=== PATIENT | female | born 1940 | race Caucasian/White ===

== ENCOUNTER 2017-08-09 10:18 | Emergency (ER) | payer OTHER ==
[~2017-08-09] VITALS: Ht 149.9 cm; Wt 70.0 kg
[~2017-08-09 10:18] MED LIST: METF500T PO
[2017-08-09 10:30] VITALS: BP 191/86; PULSE 96; RESP 16; TEMP 98.2; O2SAT 88
--- NOTE | 2017-08-09 11:34 | PD ---
HPI Chief Complaint: Complaint Time Seen by Provider: 11:34 Travel History International Travel<30 days: No Contact w/Intl Traveler<30days: No Traveled to known affect area: No History of Present Illness HPI 76-year-old female came to the emergency room with history of pelvic pain and back pain has been going on for past 5 days. Patient says that she sees a urologist Dr. Kapadia and was in his office 5 days ago and he had checked a urine then and it was negative. But the pain started shortly after that. Currently she is in significant pain as per her. Patient's blood pressure was elevated in triage. It is unclear if she is compliant with her medications. She is not the best historian and there is an element of language barrier but a bigger element of indifference and cognition part of it as well. Patient knows that she is on medications but does not know what medication she takes. She did not bring her list. When I am asking a question I do not get a direct answer but a lot of beating around the [place]. I do not think there is any aggravating or relieving factors with the pain. PFSH Past Medical History Narrative Medical List of her past medical, surgical, social and family history is reviewed from the nursing note. Asthma: Yes Heart Rhythm Problems: Yes (C/O OCCASIONAL FAST HR ) Cardiac Catheterization: No High Cholesterol: No Congestive Heart Failure: No Diabetes: Yes Hypertension: Yes (PT DENIES) Musculoskeletal: Yes (DEGENERATIVE DISK DISEASE, CHRONIC BACK PAIN) Respiratory: Yes (CHRONIC BRONCITIS) Immunizations Current: Yes Myocardial Infarction: No ?: Not Menopausal: Yes Ovarian Cysts: Yes Past Surgical History Appendectomy: Yes Coronary Artery Bypass Graft: No Hysterectomy: Yes Social History Alcohol Use: No Tobacco Use: No Substance Use: No Allergies-Medications (Allergen,Severity, Reaction): Coded Allergies: ciprofloxacin (Unverified Allergy, Severe, RASH, 12/15/16) sulfamethoxazole (Unverified Allergy, Severe, RASH, 12/15/16) trimethoprim (Unverified Allergy, Severe, RASH, 12/15/16) propoxyphene (Unverified Allergy, Mild, 12/15/16) Comments List of her allergies reviewed from the nursing note. Reported Meds & Prescriptions Reported Meds & Active Scripts Active Reported Metformin (Metformin HCl) 500 Mg Tab 500 Mg PO DAILY With a meal Narrative Medication List of her home medications reviewed from the nursing note Review of Systems Except as stated in HPI: all other systems reviewed are Neg Genitourinary: Positive: Pelvic Pain Musculoskeletal: Positive: Pain Physical Exam Narrative GENERAL: Awake, alert, mild distress SKIN: Focused skin assessment warm/dry. HEAD: Atraumatic. Normocephalic. EYES: Pupils equal and round. No scleral icterus. No injection or drainage. ENT: No nasal bleeding or discharge. Mucous membranes pink and moist. NECK: Trachea midline. No JVD. CARDIOVASCULAR: Regular rate and rhythm. No murmur appreciated. RESPIRATORY: No accessory muscle use. Clear to auscultation. Breath sounds equal bilaterally. GASTROINTESTINAL: Abdomen soft, non-tender, nondistended. Hepatic and splenic margins not palpable. MUSCULOSKELETAL: No obvious deformities. No clubbing. No cyanosis. No edema. NEUROLOGICAL: Awake and alert. No obvious cranial nerve deficits. Motor grossly within normal limits. Normal speech. PSYCHIATRIC: Appropriate mood and affect; insight and judgment normal. Data Data Last Documented VS Orders Orders Urinalysis - C+S If Indicated (08/09/17 10:46) Complete Blood Count With Diff (08/09/17 11:49) Basic Metabolic Panel (Bmp) (08/09/17 11:49) Morphine Inj (Morphine Inj) (08/09/17 12:00) Ondansetron Inj (Zofran Inj) (08/09/17 12:00) Acetamin-Hydrocod 325-5 Mg ([place] 5-325 (08/09/17 12:00) Ed Discharge Order (08/09/17 13:10) Labs Laboratory Tests Test 08/09/17 11:45 08/09/17 12:30 Urine Color LIGHT-YELLOW Urine Turbidity CLEAR Urine pH 8.0 Urine Specific [place] 1.006 Urine Protein NEG mg/dL Urine Glucose (UA) NEG mg/dL Urine Ketones NEG mg/dL Urine Occult Blood NEG Urine Nitrite NEG Urine Bilirubin NEG Urine Urobilinogen LESS THAN 2.0 MG/DL Urine Leukocyte Esterase NEG Urine WBC 1 /hpf Urine Squamous Epithelial Cells <1 /hpf Urine Bacteria FEW /hpf Microscopic Urinalysis Comment CULT NOT INDICATED White Blood Count 8.2 TH/MM3 Red Blood Count 4.60 MIL/MM3 Hemoglobin 13.8 GM/DL Hematocrit 40.5 % Mean Corpuscular Volume 88.0 FL Mean Corpuscular Hemoglobin 30.0 PG Mean Corpuscular Hemoglobin Concent 34.1 % Red Cell Distribution Width 13.5 % Platelet Count 196 TH/MM3 Mean Platelet Volume 9.1 FL Neutrophils (%) (Auto) 66.1 % Lymphocytes (%) (Auto) 25.6 % Monocytes (%) (Auto) 6.9 % Eosinophils (%) (Auto) 0.9 % Basophils (%) (Auto) 0.5 % Neutrophils # (Auto) 5.4 TH/MM3 Lymphocytes # (Auto) 2.1 TH/MM3 Monocytes # (Auto) 0.6 TH/MM3 Eosinophils # (Auto) 0.1 TH/MM3 Basophils # (Auto) 0.0 TH/MM3 CBC Comment DIFF FINAL Differential Comment Blood Urea Nitrogen 14 MG/DL Creatinine 0.67 MG/DL Random Glucose 113 MG/DL Calcium Level 9.5 MG/DL Sodium Level 139 MEQ/L Potassium Level 4.3 MEQ/L Chloride Level 106 MEQ/L Carbon Dioxide Level 27.4 MEQ/L Anion Gap 6 MEQ/L Estimat Glomerular Filtration Rate 86 ML/MIN MDM Medical Decision Making Medical Screen Exam Complete: Yes Emergency Medical Condition: Yes Medical Record Reviewed: Yes Differential Diagnosis UTI, chronic pelvic pain, musculoskeletal Narrative Course 1:08 PM awaiting for blood test results. UA is back and is negative. She was medicated for pain Procedures EKG Prior to Arrival: No Diagnosis Primary Impression: Chronic pelvic pain in female Additional Impression: Hypertension Qualified Codes: I10 - Essential (primary) hypertension Referrals: Primary Care Physician Additional Instructions: Follow-up with your primary care. Take your blood pressure medication like he supposed to. Disposition: 01 DISCHARGE HOME Condition: Stable Musa Blackwood MD Aug 09, 2017 11:34
[2017-08-09] MEDS ORDERED: MORPHINE SULFATE 4 MG/ML INJ IV PUSH ONE (12:00)
[2017-08-09] MEDS ORDERED: ONDANSETRON HCL 4 MG/2 ML VIAL IV PUSH ONE (12:00)
[2017-08-09] MEDS ORDERED: ACETAMINOPHEN/HYDROcodone 325 MG/5 MG TAB PO ONE (12:00)
[2017-08-09 12:12] LABS: BACTERIA, URINE FEW /hpf; BILIRUBIN, URINE NEG (NEG); BLOOD, URINE NEG (NEG); GLUCOSE,URINE NEG (NEG); KETONE, URINE NEG (NEG); NITRITE,URINE NEG (NEG); SQUAMOUS EPITHELIAL CELL URINE <1 /hpf (0-5); URINE COLOR LIGHT-YELLOW (YELLW/STRAW); URINE LEUKOCYTE ESTERASE NEG (NEG)
[2017-08-09 12:47] LABS: AUTOMATED NEUTROPHIL # 5.4 TH/MM3 (1.8-7.7); BASOPHIL % 0.5 % (0.0-2.0); EOSINOPHIL # 0.1 TH/MM3 (0-0.4); EOSINOPHIL % 0.9 % (0.0-4.0); HEMATOCRIT 40.5 % (35.0-46.0); HEMOGLOBIN 13.8 GM/DL (11.6-15.3); LYMPH % 25.6 % (9.0-44.0); LYMPHOCYTE # 2.1 TH/MM3 (1.0-4.8); MEAN CORPUSCULAR HGB CONC 34.1 % (32.0-36.0); MEAN PLATELET VOLUME 9.1 FL (7.0-11.0); MONO % 6.9 % (0.0-8.0); MONOCYTE # 0.6 TH/MM3 (0-0.9); NEUT % 66.1 % (16.0-70.0); PLATELET COUNT 196 TH/MM3 (150-450); RED CELL DISTRIBUTION WIDTH 13.5 % (11.6-17.2); WHITE BLOOD COUNT 8.2 TH/MM3 (4.0-11.0)
[2017-08-09 13:08] LABS: BICARBONATE 27.4 MEQ/L (21.0-32.0); CALCIUM 9.5 MG/DL (8.5-10.1); CREATININE 0.67 MG/DL (0.50-1.00)
[2017-08-09 13:15] VITALS: BP 133/67; O2SAT 95
== END 2017-08-09 13:25 | disposition home or self-care (01) ==
LOC: NEPD 10:18
DX: R10.2 Pelvic and perineal pain (principal); G89.29 Other chronic pain; I10 Essential (primary) hypertension; E11.9 Type 2 diabetes mellitus without complications; Z79.84 Long term (current) use of oral hypoglycemic drugs
CPT/HCPCS: 80048; 81001; 85025; 96374; 99284; J2405